=== PATIENT | female | born 1990 | race Caucasian/White ===

== ENCOUNTER 2025-03-22 00:06 | Emergency (ER) | payer BC, MEDICAID ==
[2025-03-22 00:15] VITALS: BP 132/80; PULSE 106
[2025-03-22 00:35] LABS: BASOPHILS ABSOLUTE AUTO 0.02 K/uL (0.00-0.20); BASOPHILS PERCENT AUTO 0.2 % (0.0-2.0); EOSINOPHILS ABSOLUTE AUTO 0.23 K/uL (0.00-0.50); EOSINOPHILS PERCENT AUTO 2.7 % (0.0-5.0); HEMOGLOBIN 12.6 g/dL (11.7-15.5); IMMATURE GRAN ABSOLUTE AUTO 0.01 10^3/uL (0.00-0.04); IMMATURE GRAN PERCENT AUTO 0.1 % (0.0-0.4); LYMPHOCYTES ABSOLUTE AUTO 2.68 K/uL (0.50-3.50); LYMPHOCYTES PERCENT AUTO 31.2 % (10.0-50.0); MEAN CORPUSCULAR HEMOGLOBIN 28.8 pg (28.2-33.3); MEAN CORPUSCULAR HGB CONC 34.1 g/dL (31.7-36.0); MEAN CORPUSCULAR VOLUME 84.5 fL (84.0-98.0); MONOCYTES ABSOLUTE AUTO 0.64 K/uL (0.00-1.00); MONOCYTES PERCENT AUTO 7.5 % (2.0-14.0); NEUTROPHILS PERCENT AUTO 58.3 % (45.0-80.0); PLATELET COUNT,PLT 222 K/uL (150-350); RED BLOOD CELL COUNT 4.38 M/uL (3.77-5.09); RED CELL DISTRIBUTION WIDTH 13.9 % (11.2-14.1); WHITE BLOOD CELL COUNT,WBC 8.6 K/uL (4.0-10.2)
[2025-03-22 00:47] LABS: CALCIUM 8.5 mg/dL (8.5-10.1); CARBON DIOXIDE,CO2 26.9 mmol/L (21.0-32.0); CREATININE 0.64 mg/dL (0.51-1.17); EST CRCL DRUG DOSING (CG) 109.35 mL/min; POTASSIUM,K 3.4 mmol/L (3.5-5.1)
[2025-03-22 00:48] LABS: ANION GAP 10.5 meq/L (7-15)
== END 2025-03-22 02:05 | disposition home or self-care (01) ==
LOC: LL.ED 00:06
DX: K59.00 Constipation, unspecified (principal); E87.6 Hypokalemia; F17.210 Nicotine dependence, cigarettes, uncomplicated; Z88.2 Allergy status to sulfonamides
CPT/HCPCS: 36415; 74019; 80048; 83605; 85025; 99284

== ENCOUNTER 2025-03-23 19:48 | Emergency (ER) | payer BC ==
[2025-03-23] MEDS ORDERED: Glycerin 5.4 GM/7.5 ML Suppository RECTAL ONE (22:11)
[2025-03-23 22:31] VITALS: BP 120/87; PULSE 93
[2025-03-23] MEDS: Bisacodyl 10 MG Supp RECTAL ONE (22:37)
== END 2025-03-23 22:41 | disposition home or self-care (01) ==
LOC: LL.ED 19:48
DX: K59.00 Constipation, unspecified (principal); F17.200 Nicotine dependence, unspecified, uncomplicated; Z88.2 Allergy status to sulfonamides; Z79.899 Other long term (current) drug therapy
CPT/HCPCS: 74019; 99283; 99284; A9270-GY